=== PATIENT | male | born 1965 | race Caucasian/White ===

== ENCOUNTER 2019-11-05 01:06 | Inpatient (IN) | payer MEDICAID ==
[~2019-11-05] VITALS: Ht 175.3 cm; Wt 135.6 kg
[2019-11-05 02:35] LABS: Urine Bacteria FEW /hpf (None Seen); Urine Blood Negative /uL (Negative); Urine Mucus FEW (None Seen); Urine Specific Gravity 1.019 (1.001-1.035); Urine WBC 4 /hpf (0 - 3)
[2019-11-05 02:44] LABS: Basophils # (auto) 0.1 10 ^3/uL (0-0.2); Basophils % (auto) 0.6 % (0.0-2.0); Eosinophils # (auto) 0.2 10 ^3/uL (0-0.8); Eosinophils % (auto) 1.4 % (0.0-7.0); Hematocrit 44.6 % (41.0-53.0); Hemoglobin 15.4 g/dL (13.5-17.5); Lymphocytes # (auto) 1.2 10 ^3/uL (0.4-5.4); Lymphocytes % (auto) 8.3 % (10.0-50.0); Mean Corpuscular Hemoglobin 30.2 pg (28.0-32.0); Mean Corpuscular Hgb Conc. 34.5 g/dL (32.0-36.0); Mean Corpuscular Volume 87.5 fL (80.0-100.0); Monocytes # (auto) 0.9 10 ^3/uL (0-1.3); Monocytes % (auto) 5.9 % (0.0-12.0); Neutrophils # (auto) 12.5 10 ^3/uL (1.6-8.6); Neutrophils % (auto) 83.8 % (37.0-80.0); Nucleated Red Blood Cells % 0.1 %; Platelet Count (auto) 271 10^3/uL (140-450); Red Cell Distribution Width 13.5 % (11.8-14.3)
[2019-11-05] MEDS ORDERED: ONDANSETRON HCL 4 MG/2 ML VIAL IV ONE ×2 (02:45→04:00)
[2019-11-05] MEDS ORDERED: MORPHINE SULFATE 4 MG/ML SYR/VIAL IV ONE ×2 (02:45→04:00)
[2019-11-05 03:03] LABS: INR 1.01 (0.9-1.15); Partial Thromboplastin Time 27.7 sec (23.64-32.05)
[2019-11-05 03:07] LABS: Albumin 4.2 g/dL (3.4-5.0); Amylase 65 U/L (25-115); Anion Gap 3 (5-15); Blood Urea Nitrogen 15 mg/dL (7-18); Calcium 9.2 mg/dL (8.5-10.1); Carbon Dioxide 30 mmol/L (21-32); Chloride 106 mmol/L (98-107); Glucose 169 mg/dL (74-106); Lipase 86 U/L (73-393); Magnesium 2.4 mg/dL (1.6-2.6); Potassium 4.6 mmol/L (3.5-5.1); Sodium 139 mmol/L (136-145)
[2019-11-05 03:13] LABS: Alanine Aminotransferase 38 U/L (16-61); Alkaline Phosphatase 62 U/L (45-117); Aspartate Aminotransferase 27 U/L (15-37); BUN/Creatinine Ratio 11.1; Bilirubin, Total 0.8 mg/dL (0.2-1.0); GFR African American 71 mL/min; GFR Non-African American 59 mL/min; Total Protein 7.9 g/dL (6.4-8.2)
[2019-11-05] MEDS ORDERED: cefTRIAXone 1GM/50ML D5W 50 ML IV ONE (04:00)
[2019-11-05] MEDS ORDERED: HYDROmorphone HCL 2 MG/ML VL IV ONE (04:15)
[2019-11-05] MEDS ORDERED: SODIUM CHLORIDE 0.9% 1,000 ML IV SCH (05:49)
[2019-11-05] MEDS ORDERED: DEXTROSE (50%) 50ML SYRG IV PRN (06:00)
[2019-11-05] MEDS ORDERED: ACETAMINOPHEN 325 MG TAB PO PRN ×2 (06:00)
[2019-11-05] MEDS ORDERED: ONDANSETRON HCL 4 MG/2 ML VIAL IV PRN ×2 (06:00)
[2019-11-05] MEDS ORDERED: DOCUSATE SOD 100 MG CAP PO PRN (06:00)
[2019-11-05] MEDS ORDERED: NITROGLYCERIN 0.4 MG SL TAB SL PRN (06:00)
[2019-11-05 07:14] LABS: Basophils # (auto) 0.1 10 ^3/uL (0-0.2); Basophils % (auto) 0.5 % (0.0-2.0); Eosinophils # (auto) 0 10 ^3/uL (0-0.8); Eosinophils % (auto) 0.3 % (0.0-7.0); Hematocrit 43.6 % (41.0-53.0); Hemoglobin 14.4 g/dL (13.5-17.5); Lymphocytes # (auto) 0.9 10 ^3/uL (0.4-5.4); Lymphocytes % (auto) 5.8 % (10.0-50.0); Mean Corpuscular Hemoglobin 29.1 pg (28.0-32.0); Mean Corpuscular Hgb Conc. 33.1 g/dL (32.0-36.0); Mean Corpuscular Volume 87.9 fL (80.0-100.0); Monocytes # (auto) 0.9 10 ^3/uL (0-1.3); Monocytes % (auto) 5.9 % (0.0-12.0); Neutrophils # (auto) 14.1 10 ^3/uL (1.6-8.6); Neutrophils % (auto) 87.5 % (37.0-80.0); Platelet Count (auto) 232 10^3/uL (140-450); Red Blood Cells 4.96 10^6/uL (4.5-5.90); Red Cell Distribution Width 13.6 % (11.8-14.3); White Blood Cell 16.2 10^3/uL (4.4-10.8)
[2019-11-05 07:21] LABS: Calcium 8.9 mg/dL (8.5-10.1); Potassium 4.4 mmol/L (3.5-5.1)
[2019-11-05 07:25] LABS: BUN/Creatinine Ratio 12.1
[2019-11-05] MEDS: InsuLIN REG 1unit/0.01ml Soln (100units/ml) SC SCH ×2 (08:00→11:48)
[2019-11-05] MEDS: ACCU-CHEK COMFORT CURVE STRIP VI SCH ×2 (09:15→11:48)
--- NOTE | 2019-11-05 09:30 | NUR ---
Patient arrived to unit. Alert and oriented. Ambulates to bathroom on his own. Patient has no chest pain, no nausea at this time. Patient is resting comfortably in bed, oriented to room, call light. Patient shows no s/s of distress at time of arrival.
[2019-11-05] MEDS: CARVEDILOL 3.125 MG TAB PO SCH ×2 (10:00→11:30)
[2019-11-05] MEDS: LISINOPRIL 10 MG TAB PO SCH ×2 (10:00→11:30)
[2019-11-05] MEDS: DOCUSATE SOD 100 MG CAP PO SCH ×2 (10:00→11:29)
[2019-11-05] MEDS ORDERED: PROP20TA73 PO (10:32)
[2019-11-05] MEDS ORDERED: BENZ100C97 PO (10:34)
[2019-11-05] MEDS ORDERED: SENN-51 PO (10:34)
--- NOTE | 2019-11-05 12:00 | NUR ---
Cherelle MARIE at bedside for cardio consult.
[2019-11-05] MEDS ORDERED: LISINOPRIL 20 MG TAB PO ONE (12:15)
[2019-11-05 12:32] VITALS: BP 146/89
[2019-11-05] MEDS: D5W/ SOD CHL 0.9%/KCL 20MEQ 1,000 ML IV SCH (16:12)
[2019-11-05 16:43] VITALS: BP 137/84
[2019-11-05] MEDS ORDERED: MIRT1TAB40 PO (18:25)
--- NOTE | 2019-11-05 18:25 | NUR ---
RE: HOME MEDS called patients regarding home meds, edited patients medications. She said she thought he took medication for parkinson's but he doesn't have any other medications, thought propranolol was for parkinsons.
--- NOTE | 2019-11-05 19:17 | NUR ---
Report given to Maylin PATRICK, care endorsed, patient has no s/s of distress noted at this time.
--- NOTE | 2019-11-05 19:30 | NUR ---
Opening Shift Note Assumed care of patient, awake and alert. No S/S of distress/SOB or pain. Insructed on POC and to callfor assist PRN, will continue to monitor for changes Q1hr and PRN. Fall and safety precautions in place. Call light within reach.
[2019-11-05] MEDS: HYDROcodone-ACET 5/325MG TAB PO PRN (20:11)
[2019-11-05] MEDS: METOPROLOL TARTRATE 25 MG TAB PO SCH (21:31)
[2019-11-05] MEDS: MORPHINE SULF INJ 2 MG/ML SYRINGE 1ML IV PRN (21:32)
[2019-11-05 22:00] VITALS: BP 121/65
[2019-11-05] MEDS ORDERED: ATORVASTATIN 20 MG TAB PO SCH (22:00)
--- NOTE | 2019-11-05 22:00 | NUR ---
TEMP Patient's temp 100.7F oral. Cooling measures applied. Will recheck approximately 1 hour. Addendum: 11/06/19 at 0015 by Maylin Yousif RN RN 100.3
--- NOTE | 2019-11-06 00:10 | NUR ---
HOSPITALIST Paged on-call hospitalist regarding request for sleeping pill. Awaiting call back
--- NOTE | 2019-11-06 00:18 | NUR ---
HOSPITALIST Received call back from hospitalist on-call, Dr. Owen. New orders received, read back and verified. Will input and carry out
[2019-11-06] MEDS: TEMAZEPAM 15 MG CAP PO PRN (00:34)
[2019-11-06] MEDS: D5W/ SOD CHL 0.9%/KCL 20MEQ 1,000 ML IV SCH ×3 (02:58→14:16)
[2019-11-06] MEDS: HYDROcodone-ACET 5/325MG TAB PO PRN (03:03)
[2019-11-06 05:00] VITALS: BP 141/84
[2019-11-06 06:05] LABS: Basophils # (auto) 0.1 10 ^3/uL (0-0.2); Basophils % (auto) 0.8 % (0.0-2.0); Eosinophils # (auto) 0.6 10 ^3/uL (0-0.8); Eosinophils % (auto) 6.1 % (0.0-7.0); Hemoglobin 13.7 g/dL (13.5-17.5); Lymphocytes # (auto) 1.5 10 ^3/uL (0.4-5.4); Lymphocytes % (auto) 15.7 % (10.0-50.0); Mean Corpuscular Hemoglobin 30.9 pg (28.0-32.0); Mean Corpuscular Volume 88.1 fL (80.0-100.0); Monocytes # (auto) 1.2 10 ^3/uL (0-1.3); Monocytes % (auto) 12.6 % (0.0-12.0); Neutrophils # (auto) 6.2 10 ^3/uL (1.6-8.6); Neutrophils % (auto) 64.8 % (37.0-80.0); Platelet Count (auto) 181 10^3/uL (140-450); Red Blood Cells 4.43 10^6/uL (4.5-5.90); Red Cell Distribution Width 13.2 % (11.8-14.3); White Blood Cell 9.6 10^3/uL (4.4-10.8)
[2019-11-06 06:34] LABS: Potassium 3.8 mmol/L (3.5-5.1)
[2019-11-06 06:46] LABS: Albumin 3.2 g/dL (3.4-5.0); BUN/Creatinine Ratio 12.6; Bilirubin, Total 1.3 mg/dL (0.2-1.0); Total Protein 6.3 g/dL (6.4-8.2)
--- NOTE | 2019-11-06 08:20 | NUR ---
called, gave an update.
[2019-11-06 09:00] VITALS: BP 130/72
[2019-11-06] MEDS: METOPROLOL TARTRATE 25 MG TAB PO SCH ×2 (10:59→21:19)
[2019-11-06] MEDS: LISINOPRIL 20 MG TAB PO SCH (11:00)
--- NOTE | 2019-11-06 11:45 | NUR ---
called, gave an update on medications/vitals.
[2019-11-06 13:00] VITALS: BP 143/74
--- NOTE | 2019-11-06 14:00 | NUR ---
FISCHEL AT BEDSIDE TO SPEAK WITH PATIENT.
--- NOTE | 2019-11-06 15:40 | NUR ---
Patient signed consent for surgery and blood transfusion, patient states he doesn't know anything about the anesthesia, did not have patient sign that consent.
--- NOTE | 2019-11-06 16:50 | NUR ---
called, gave another update, also let her know there likely wouldn't be anything new until after surgery.
[2019-11-06 16:57] VITALS: BP 154/86
--- NOTE | 2019-11-06 19:15 | NUR ---
Report given to heaven singer endorsed.
[2019-11-06] MEDS: MIRTAZAPINE 30 MG TAB PO SCH (21:19)
[2019-11-06 22:00] VITALS: BP 131/68
[2019-11-07] VITALS (8 sets, daily range): BP systolic 115–154; BP diastolic 69–87
--- NOTE | 2019-11-07 06:00 | NUR ---
CHG Patient was educated on importance of CHG bath prior to procedure and how to perform. After verbalizing understanding and agreement, patient ambulated self with steady gait to bathroom and independently cleansed himself with CHG wipes. Complete linen change done gown changed. Patient tolerated well. Will continue to monitor
--- NOTE | 2019-11-07 08:10 | NUR ---
Patient taken down to preop for procedure no distress or sob noted on departure. Care endorsed to Michelle seymourop rn. Will resume care on arrival.
[2019-11-07] MEDS ORDERED: ceFAZolin 1GM/50ML 50 ML IV ONE (08:20)
[2019-11-07] MEDS ORDERED: MIDAZOLAM HCL 1MG/1ML-2 ML VIAL ONE (08:23)
[2019-11-07] MEDS ORDERED: SODIUM CHLORIDE LOCK 10 ML ONE (08:23)
[2019-11-07] MEDS ORDERED: MEPERIDINE HCL (25 MG/ML) 1ML VIAL ONE (08:23)
[2019-11-07] MEDS ORDERED: fentaNYL CITRATE 100 MCG/2 ML VL ONE (08:23)
[2019-11-07] MEDS ORDERED: ROCURONIUM 10MG/ML 10ML VIAL IV ONE (08:23)
[2019-11-07] MEDS ORDERED: ONDANSETRON HCL 4 MG/2 ML VIAL ONE (08:23)
[2019-11-07] MEDS ORDERED: PROPOFOL 10 MG/ML 20 ML IV ONE (08:23)
[2019-11-07] MEDS ORDERED: NEOSTIGMINE 1 MG/ML INJ (10mg/10ML VIAL) IV ONE (08:39)
[2019-11-07] MEDS ORDERED: GLYCOPYRROLATE 0.2 MG/ML 1ML VIAL IV ONE (08:39)
[2019-11-07] MEDS ORDERED: SUCCINYLCHOLINE CHLORIDE 20 MG/ML 10ML VIAL IV ONE (08:39)
[2019-11-07] MEDS ORDERED: EPINEPHrine HCL 0.5 ML NEB NEB ONE (10:00)
[2019-11-07] MEDS ORDERED: EPINEPHrine HCL 0.5 ML NEB ONE (10:01)
[2019-11-07] MEDS ORDERED: HYDROmorphone HCL 2 MG/ML VL ONE (10:06)
[2019-11-07] MEDS: HYDROmorphone HCL 2 MG/ML VL IV PRN ×3 (10:07→10:28)
[2019-11-07] MEDS ORDERED: MORPHINE SULFATE 4 MG/ML SYR/VIAL IV PRN (10:15)
[2019-11-07] MEDS ORDERED: ONDANSETRON HCL 4 MG/2 ML VIAL IV PRN (10:15)
[2019-11-07] MEDS ORDERED: fentaNYL CITRATE 100 MCG/2 ML VL IV PRN (10:15)
[2019-11-07] MEDS ORDERED: ACCU-CHEK COMFORT CURVE STRIP VI ONE (10:15)
--- NOTE | 2019-11-07 10:50 | NUR ---
Patient back from procedure Abd dressing x3 noted c/d/i, abd binder in place as ordered. Patient resumed on IV fluids as ordered. Patient placed on 3L n/c VSS. Will medicate as ordered with morning meds at this time. Fall precs in place with bed alarm on at all times patient instructed to call for assistance as needed he verbalized understanding. Patient placed on SCD's and provided him with IS and instructed on use he returned demonstration. Will cont care
[2019-11-07] MEDS: D5W/ SOD CHL 0.9%/KCL 20MEQ 1,000 ML IV SCH ×2 (11:10→12:51)
[2019-11-07] MEDS: LISINOPRIL 20 MG TAB PO SCH (11:15)
[2019-11-07] MEDS: METOPROLOL TARTRATE 25 MG TAB PO SCH ×2 (11:16→22:00)
--- NOTE | 2019-11-07 11:34 | NUR ---
Spoke to family patient's Mignon updated on patient status
--- NOTE | 2019-11-07 12:36 | NUR ---
Nutrition Assessment Notes Please refer to link for full assessment notes. Est Energy needs: 5698-4280 kcals (12-15 kcal/kgBW) Est Protein needs: 145-181 gms/day (2.0-2.5 gm/kgBW) Will continue to monitor and reassess prn. Addendum: 11/07/19 at [address] Amended: Links added.
[2019-11-07] MEDS ORDERED: ALBUTEROL SULF 2.5 MG/0.5ML(0.5%) NEB SOLN NEB PRN (14:00)
[2019-11-07] MEDS ORDERED: IPRATROPIUM BROM 0.5 MG/2.5ML INH SOL NEB PRN (14:00)
[2019-11-07] MEDS: HYDROcodone-ACET 5/325MG TAB PO PRN ×2 (15:28→20:18)
--- NOTE | 2019-11-07 19:10 | NUR ---
Patient care endorsed endorsed care to Flaco rn. Patient resting comfortably in bed no acute distress or sob noted. Call light within reach. Dressing to abd c/d/i abd binder in place. Patient encouraged to turn cough and deep breath and use of IS. SCD's in place. Call light within reach.
--- NOTE | 2019-11-07 21:25 | NUR ---
PT DANGLING ON SIDE OF BED. STATES DESIRE TO GO HOME TOMORROW.
[2019-11-07] MEDS: TEMAZEPAM 15 MG CAP PO PRN (22:32)
[2019-11-07] MEDS: MIRTAZAPINE 30 MG TAB PO SCH (22:34)
[2019-11-08] MEDS: MORPHINE SULF INJ 2 MG/ML SYRINGE 1ML IV PRN (01:43)
[2019-11-08 05:00] VITALS: BP 144/82
[2019-11-08] MEDS: D5W/ SOD CHL 0.9%/KCL 20MEQ 1,000 ML IV SCH ×2 (05:10→21:22)
[2019-11-08 05:31] LABS: Basophils # (auto) 0 10 ^3/uL (0-0.2); Basophils % (auto) 0.4 % (0.0-2.0); Eosinophils # (auto) 0.6 10 ^3/uL (0-0.8); Hematocrit 41.6 % (41.0-53.0); Hemoglobin 14.1 g/dL (13.5-17.5); Lymphocytes # (auto) 1.2 10 ^3/uL (0.4-5.4); Lymphocytes % (auto) 10.8 % (10.0-50.0); Mean Corpuscular Hemoglobin 29.6 pg (28.0-32.0); Mean Corpuscular Hgb Conc. 33.9 g/dL (32.0-36.0); Mean Corpuscular Volume 87.4 fL (80.0-100.0); Monocytes # (auto) 1.3 10 ^3/uL (0-1.3); Monocytes % (auto) 11.8 % (0.0-12.0); Nucleated Red Blood Cells % 0.1 %; Platelet Count (auto) 179 10^3/uL (140-450); Red Blood Cells 4.76 10^6/uL (4.5-5.90); Red Cell Distribution Width 13.2 % (11.8-14.3); White Blood Cell 11.2 10^3/uL (4.4-10.8)
[2019-11-08] MEDS: HYDROcodone-ACET 5/325MG TAB PO PRN (06:09)
--- NOTE | 2019-11-08 06:23 | NUR ---
PT GIVEN INCENTIVE SPIROMETER AND TAUGHT HOW TO USE IT.
[2019-11-08 08:00] VITALS: BP 105/71
--- NOTE | 2019-11-08 08:00 | NUR ---
ASSESSMENT NOTE PT IS ALERT ORIENTED X4, RESTING IN BED COMFORTABLY, NO DISTRESS NOTED, ABLE TO SELF REPOSITIONED IDENTIFY HIS DEMANDS, 3 SMALL SURGICAL WOUND NOTED AT THE ABDOMEN AREA, NO SIGNS OF INFECTION NOTED, DENIES PAIN AT THIS TIME, AMBULATE NEEDED
[2019-11-08 09:00] VITALS: BP 141/85
[2019-11-08] MEDS: METOPROLOL TARTRATE 25 MG TAB PO SCH ×2 (09:13→21:25)
[2019-11-08] MEDS: LISINOPRIL 20 MG TAB PO SCH (09:14)
--- NOTE | 2019-11-08 10:00 | NUR ---
DR ZAZUETA AT BED SIDE FOLLOWING UP ON PT
--- NOTE | 2019-11-08 10:00 | NUR ---
INCENTIVE SPIROMETR ENOURAGE PT TO USE INCENTIVE SPIROMETER AT LEAST 10X PER HOUR, EXPLAIN TO PT WHY, VERBALIS UNDERSTANDING
[2019-11-08 13:00] VITALS: BP 147/83
--- NOTE | 2019-11-08 13:05 | NUR ---
PT ASSESSED FOR PRN BREATHING TX. PT IN NO DISTRESS. PT ON RA WITH SPO2 92%, HR 74, RR 16 WITH CLEAR BS. NO INDICATION FOR PRN MED NEB.
[2019-11-08 17:00] VITALS: BP 121/76
--- NOTE | 2019-11-08 18:58 | NUR ---
PT CONTINUE STABLE, CONTINUE MONITORING
--- NOTE | 2019-11-08 19:10 | NUR ---
ASSUMED CARE, PT. AWAKE, NO C/O PAIN, NO SOB.
[2019-11-08] MEDS: MIRTAZAPINE 30 MG TAB PO SCH (21:27)
[2019-11-08 22:00] VITALS: BP 122/95
[2019-11-09 05:00] VITALS: BP 127/89
[2019-11-09 06:29] LABS: Albumin 3.4 g/dL (3.4-5.0); Bilirubin, Direct 0.2 mg/dL (0-0.2); Bilirubin, Total 1.5 mg/dL (0.2-1.0); Total Protein 7.2 g/dL (6.4-8.2)
--- NOTE | 2019-11-09 07:30 | NUR ---
Opening Shift Note Assumed care of patient, awake and alert. No S/S of distress/SOB or pain. Instructed on POC and to call for assist PRN, will continue to monitor for changes Q1hr and PRN. Bed is set in lowest locked position with side rails up x 2 for safety and call light is within reach.
[2019-11-09 08:00] VITALS: BP 154/93
[2019-11-09 09:00] VITALS: BP 154/93
--- NOTE | 2019-11-09 09:10 | NUR ---
MD Patterson roundkyle at bedside Updated pt on discharge planning and instructed patient to follow up with Dr. Nath on Tuesday11/13/19, prior to appointment on 11/12/19 patient instructed to get CBC and CMP blood work drawn, patient verbalized understanding.
[2019-11-09] MEDS ORDERED: LISI40TA11 PO (09:13)
[2019-11-09] MEDS ORDERED: FAMO20TA10 PO (09:13)
[2019-11-09] MEDS: METOPROLOL TARTRATE 25 MG TAB PO SCH (10:05)
[2019-11-09] MEDS: LISINOPRIL 20 MG TAB PO SCH (10:05)
[2019-11-09 11:08] VITALS: BP 130/80
--- NOTE | 2019-11-09 12:07 | NUR ---
Discharge instructions given as ordered. Encourage to follow up with PMD as instructed. All questions and concerns addressed. Patient verbalized understanding. IV removed with catheter intact, pressure dressing applied. Patient taken to vehicle via wheelchair with all personal belongings, accompanied by staff. No distress noted at time of departure.
== END 2019-11-09 12:07 | disposition home or self-care (01) | DRG 263 ==
LOC: ER 01:08 → TELE 01:09 → TELE-CENTR 08:41 → CENTRAL 11-08 10:24
PROVIDERS: ADMIT Hospitalist; ATTEND Internal Medicine
PROC: 0FT44ZZ Resection of Gallbladder, Percutaneous Endoscopic Approach (ICD-10-PCS; principal; 2019-11-07 08:41)
DX: K80.12 Calculus of gallbladder with acute and chronic cholecystitis without obstruction (principal); E66.01 Morbid (severe) obesity due to excess calories; G20 Parkinson's disease; R65.10 Systemic inflammatory response syndrome (SIRS) of non-infectious origin without acute organ dysfunction; N20.0 Calculus of kidney; F17.200 Nicotine dependence, unspecified, uncomplicated; I16.0 Hypertensive urgency; Z68.41 Body mass index [BMI] 40.0-44.9, adult; Z83.3 Family history of diabetes mellitus; Z80.1 Family history of malignant neoplasm of trachea, bronchus and lung; Z82.49 Family history of ischemic heart disease and other diseases of the circulatory system
CPT/HCPCS: 36415; 71045; 74176; 80048; 80053; 80061; 80076; 81001; 82150; 82247; 82962; 83036; 83690; 83735; 84484; 85025; 85610; 85730; 86850; 86900; 86901; 93005; 93306; 94640; 96361; 96365; 96375; 96376; G0378; J0330; J0690; J0696; J2250; J2405; J2704

== ENCOUNTER → 2019-11-13 | Outpatient (CLI) | payer MEDICARE, MEDICAID ==
[~2019-11-13] MED LIST: BENZ100C97 PO; FAM20T PO; LISI40TA PO; MIRT1TAB40 PO; PROP20TA73 PO; SENN-51 PO
[2019-11-13 09:59] LABS: Basophils # (auto) 0.1 10 ^3/uL (0-0.2); Basophils % (auto) 0.6 % (0.0-2.0); Eosinophils # (auto) 0.6 10 ^3/uL (0-0.8); Hemoglobin 14.1 g/dL (13.5-17.5); Lymphocytes # (auto) 1.8 10 ^3/uL (0.4-5.4); Lymphocytes % (auto) 17.2 % (10.0-50.0); Mean Corpuscular Hemoglobin 29.5 pg (28.0-32.0); Mean Corpuscular Hgb Conc. 33.7 g/dL (32.0-36.0); Mean Corpuscular Volume 87.8 fL (80.0-100.0); Monocytes % (auto) 9.1 % (0.0-12.0); Neutrophils # (auto) 7.2 10 ^3/uL (1.6-8.6); Neutrophils % (auto) 67.1 % (37.0-80.0); Nucleated Red Blood Cells % 0.1 %; Platelet Count (auto) 243 10^3/uL (140-450); Red Blood Cells 4.79 10^6/uL (4.5-5.90); White Blood Cell 10.7 10^3/uL (4.4-10.8)
[2019-11-13 10:36] LABS: Albumin 3.3 g/dL (3.4-5.0)
[2019-11-13 10:39] LABS: BUN/Creatinine Ratio 10.4; Bilirubin, Total 0.4 mg/dL (0.2-1.0); Total Protein 7.1 g/dL (6.4-8.2)
== END | disposition home or self-care (01) ==
LOC: LAB 09:31
PROVIDERS: ATTEND Internal Medicine
DX: K80.20 Calculus of gallbladder without cholecystitis without obstruction (principal)
CPT/HCPCS: 36415; 80053; 85025